=== PATIENT | male | born 1960 | race Caucasian/White ===

== ENCOUNTER → 2016-06-05 | Outpatient (CLI) | payer MEDICARE, OTHER ==
[~2016-06-05] MED LIST: ALDACTONE25 MG PO; AMLODIPINE BESY10 MG PO; ASPIR-LOW81 MG PO; BACLOFEN20 MG PO; CALCIUM 600 +1 EAC4 PO; COREG6.25 M1 PO; DICLOFENAC SODI75 MG PO; HYDROCHLOROTHIA25 MG PO; LISINOPRIL20 MG PO; METFORMIN HCL500 MG PO; NEURONTIN400 MG PO; PRAVACHOL40 MG PO; WARFARIN SODIU7.5 MG PO; WARFARIN SODIUM10 MG PO
== END | disposition home or self-care (01) ==
LOC: CDC 11:00
DX: I44.4 Left anterior fascicular block (principal); I45.10 Unspecified right bundle-branch block; I48.92 Unspecified atrial flutter; I10 Essential (primary) hypertension
CPT/HCPCS: 93000